=== PATIENT | male | born 1950 | race Caucasian/White ===

== ENCOUNTER 2017-10-13 10:01 | Outpatient (CLI) | payer MEDICARE | END 2017-10-13 10:02 | disposition home or self-care (01) | LOC: CTENTCT 10:01 | PROVIDERS: ATTEND Specialist | DX: J33.9 Nasal polyp, unspecified (principal) | CPT/HCPCS: 70486 ==

== ENCOUNTER 2018-01-18 10:05 | Day surgery (SDC) | payer BC, MEDICARE ==
[2018-01-17 11:22] VITALS: BMI 25.4
[2018-01-18] MEDS ORDERED: Oxymetazoline HCl 0.05% ( 15 ML ) ONE ×2 (11:55→13:26)
[2018-01-18 12:16] LABS: Hemoglobin 15.7 g/dL (14.0-18.0)
[2018-01-18 12:37] LABS: Anion Gap 11 mmol/L (10-20); BUN (Urea Nitrogen) 15 mg/dL (8.4-25.7); Calc. Creatinine Clearance 85 mL/min (70-130); Calcium 8.7 mg/dL (7.8-10.44); Carbon Dioxide 26 mmol/L (23-31); Chloride 106 mmol/L (98-107); Estimated GFR-MDRD 74; Glucose 83 mg/dL (80-115); Potassium 3.9 mmol/L (3.5-5.1); Sodium 139 mmol/L (136-145)
[2018-01-18] MEDS ORDERED: Fentanyl 100 MCG/2 ML VIAL ONE ×2 (12:39→13:21)
[2018-01-18] MEDS ORDERED: Famotidine/PF 20 mg/2ml Vial ONE (12:39)
[2018-01-18] MEDS ORDERED: Dexamethasone 20 MG/5 ML VIAL ONE (13:19)
[2018-01-18] MEDS ORDERED: Ondansetron HCl/PF 4 MG/2 ML Vial ONE (13:19)
[2018-01-18] MEDS ORDERED: ePHEDrine/0.9% NaCl/PF SYRINGE 50 mg/10 ml ONE (13:19)
[2018-01-18] MEDS ORDERED: Succinylcholine Chloride 20 MG/ML 10 ml SYRINGE FS ONE (13:19)
[2018-01-18] MEDS ORDERED: PROPOFOL 200 MG/20 ML VIAL ONE (13:19)
[2018-01-18] MEDS ORDERED: Glycopyrrolate 0.2 MG/ML 5 ML SYRINGE ONE (13:19)
[2018-01-18] MEDS ORDERED: Lidocaine 1% PF 5 ML VIAL ONE (13:19)
[2018-01-18] MEDS ORDERED: Lidocaine 4% Topical Sol 50 ML BOT ONE (13:24)
[2018-01-18] MEDS ORDERED: Lidocaine 1% w/Epinephrine 1:100K 30 ML VIAL ONE (13:26)
[2018-01-18] MEDS ORDERED: Bacitracin Zinc Ointment 30 gm TUBE ONE (13:26)
[2018-01-18] MEDS ORDERED: Triamcinolone 40 MG/ML VIAL ONE (14:14)
--- NOTE | 2018-01-18 16:26 | OP ---
PREOPERATIVE DIAGNOSES: Chronic sinusitis, recurrent sinusitis, pansinusitis, nasal polyposis, devia viv septum, hypertrophic inferior turbinates. POSTOPERATIVE DIAGNOSES: Chronic sinusitis, recurrent sinusitis, pansinusitis, nasal polyposis, meño ated septum, hypertrophic inferior turbinates. PROCEDURES PERFORMED: 1. Bilateral nasal endoscopy with maxillary antrostomy with removal of tissue. 2. Bilateral nasal endoscopy with total ethmoidectomy. 3. Bilateral nasal endoscopy with sphenoidotomy with removal of tissue. 4. Bilateral nasal endoscopy with frontal sinusotomy. 5. Septoplasty. 6. Bilateral nasal endoscopy with submucosal resection of inferior turbinates. 7. Stereotactic image guidance. FINDINGS: The patient had a large anterior septal spur which was occluded. Visualization of the ost iomeatal complex area and this was addressed endoscopically. There was extensive polyps in all sinus es. DESCRIPTION OF PROCEDURE: After consent was obtained, the patient was identified, brought to the ope rating room, and placed on the operating room table in the supine position. Consent was obtained, no tifying the patient of the possibility of additional infections, bleeding, brain injury, and eye/orbi jose injury. The patient was placed on the operating room table, and general endotracheal anesthesia and intravenous access was obtained. The patient was then positioned, prepped and draped for endosc opic sinus surgery. Nasal preparation included trimming nasal vestibular hairs and spraying in topic al Afrin. We then placed Afrin topical solution on nasal pledgets and strategically located them int ranasally. The perinasal mucosa was injected with 1% lidocaine with 1:100,000 epinephrine in the sub mucoperichondrial plane of the septum, lateral nasal wall, and anterior to the uncinate. The patient was then prepped and draped in a sterile fashion and positioned for endoscopic sinus surgery. Endoscopic Sinus Surgery: With the 0-degree endoscope, the patient underwent systematic nasal endosc opy. There were no suspicious internasal masses or lesions identified. We then focused our attentio n to the osteomeatal complex region under the middle turbinate. Maxillary Antrostomy: The uncinate was then identified and the extent of the uncinate was appreciate d by out-fracturing the uncinate with the ball-tip probe. We then used the sickle blade to disarticu late the uncinate from the lateral nasal wall. This was then removed with straight biting and upbiti ng punches with the remaining shrouds of mucosa and bony septum removed with the micro-debrider. The natural os of the maxillary sinus was then identified and enlarged with the maxillary punches and ba ck biting forceps. Total Ethmoidectomy: The anterior face of the ethmoid bulla was entered and with the micro-debrider, dissection continued posteriorly to the ground lamella. The limits of dissection included the inser tion of the middle turbinate, medial orbital wall, and base of skull. We similarly identified the fr ontal recess and removed shrouds of bone and debris in that region to obtain patency into the agger n asi region and frontal recess. We then entered the ground lamella and its anteroinferior aspect and proceeded posteriorly, opening the posterior ethmoid air-cell system. Again, the limits of dissectio n included the base of skull and medial orbital wall. Sphenoidotomy: The anterior face of the sphenoid was identified and entered in its extreme anteroinf erior aspect. A sphenoid punch was then used to enlarge the sphenoidotomy and no injury to the optic nerve or internal carotid artery occurred. Outfracture of the Inferior Turbinates: The inferior turbinates were visualized under endoscopic vis ualization and outfractured with the elevator. The inferolateral edge of the inferior turbinate was then cauterized along its length with the suction cautery without difficulty. Outfracture & Cautery of the Inferior Turbinates: The inferior turbinates were visualized with a 0-d egree endoscope and outfractured with a Jennifer elevator. The inferior medial aspect was cauterized wi th the electrocautery. Hemostasis was obtained. After adequate airway was established, we turned ou r attention to the contralateral side and used a similar procedure. Again, a Jennifer elevator was used to outfracture inferior turbinates under endoscopic visualization. With a suction cautery, the free inferior medial aspect was cauterized under direct visualization along the length of the inferior tu rbinate. Septoplasty: After local anesthesia was infiltrated into the submucoperichondrial plane, a standard Eudora incision was made with a #15 blade down to the level of the septal cartilage. The caudal naman vator was used to elevate the mucoperichondrium from the underlying cartilage. We then proceeded bey ond the bony cartilaginous junction and elevated the bony periosteum as well. Great attention was pa id to the spur to prevent rent formation in the septal flap. A transcartilaginous incision was then m herman, while preserving an adequate dorsal and caudal cartilaginous strut for tip support. The deforme d cartilage was removed and disarticulated from the bony cartilaginous junction and maxillary crest. This was placed in saline and would later be crushed and returned to the mucoperichondrial envelope. We then elevated the contralateral periosteum from the bony cartilaginous region and removed the de formed portions of the bone and bony spurs. The cartilage was then crushed and placed back into the mucoperichondrial envelope and the mucosa was re-approximated with a quilting stitch composed of rapi dly absorbent gut suture. The Eudora incision was also closed with interrupted gut suture. At the completion of the case, Blakely splints were placed and suture secured to the caudal septum. At the completion of the case, Rice keel splints were placed in the ethmoid cavities after the ethmoi dectomy. There were no complications. The patient tolerated the procedure well and was discharged t o the recovery room in stable condition prior to return to the preoperative Day Stay with [facility]. Prescriptions for pain medication and antibiotics were provided. The patient received intramuscular Depo-Medrol during the case.
--- NOTE | 2018-01-21 20:55 | EKG ---
Test Reason : PREOP Blood Pressure : / mmHG Vent. Rate : 056 BPM Atrial Rate : 056 BPM P-R Int : 162 ms QRS Dur : 096 ms QT Int : 412 ms P-R-T Axes : 060 -20 012 degrees QTc Int : 397 ms Sinus bradycardia with sinus arrhythmia Minimal voltage criteria for LVH, may be normal variant Borderline ECG No previous ECGs available Confirmed by Kareem LUCAS ([id number]) on 01/21/2018 8:54:46 PM Referred By: WANDA Confirmed By:Kareem LUCAS
== END 2018-01-18 16:25 | disposition home or self-care (01) ==
LOC: SDC 10:05
PROVIDERS: ATTEND Specialist
PROC: 09TV8ZZ Resection of Left Ethmoid Sinus, Via Natural or Artificial Opening Endoscopic (ICD-10-PCS; principal; 2018-01-18)
PROC: 09SL8ZZ Reposition Nasal Turbinate, Via Natural or Artificial Opening Endoscopic (ICD-10-PCS; principal; 2018-01-18)
PROC: 09SM0ZZ Reposition Nasal Septum, Open Approach (ICD-10-PCS; principal; 2018-01-18)
PROC: 8E09XBZ Computer Assisted Procedure of Head and Neck Region (ICD-10-PCS; principal; 2018-01-18)
PROC: 099X8ZZ Drainage of Left Sphenoid Sinus, Via Natural or Artificial Opening Endoscopic (ICD-10-PCS; principal; 2018-01-18)
PROC: 09BQ8ZZ Excision of Right Maxillary Sinus, Via Natural or Artificial Opening Endoscopic (ICD-10-PCS; principal; 2018-01-18)
PROC: 09BR8ZZ Excision of Left Maxillary Sinus, Via Natural or Artificial Opening Endoscopic (ICD-10-PCS; principal; 2018-01-18)
PROC: 09TU8ZZ Resection of Right Ethmoid Sinus, Via Natural or Artificial Opening Endoscopic (ICD-10-PCS; principal; 2018-01-18)
PROC: 099W8ZZ Drainage of Right Sphenoid Sinus, Via Natural or Artificial Opening Endoscopic (ICD-10-PCS; principal; 2018-01-18)
DX: J32.4 Chronic pansinusitis (principal); J33.9 Nasal polyp, unspecified; J34.2 Deviated nasal septum; J34.3 Hypertrophy of nasal turbinates; G47.30 Sleep apnea, unspecified; Z79.899 Other long term (current) drug therapy; Z88.5 Allergy status to narcotic agent
CPT/HCPCS: 36415; 80048; 85014; 85018; 93005; 93010; J0131; J1100; J2001; J2405; J2704; J3010; J3301; S0028

== ENCOUNTER 2019-03-08 16:21 | Inpatient (IN) | payer BC, MEDICARE ==
[~2019-03-08 16:21] MED LIST: Iopamidol-370 76% 500 ML 1 ML ONE
[2019-03-08 17:07] LABS: ALT (SGPT) 39 U/L (8-55); AST (SGOT) 61 U/L (5-34); Alkaline Phosphatase 92 U/L (40-110); Anion Gap 9 mmol/L (10-20); BUN (Urea Nitrogen) 23 mg/dL (8.4-25.7); Bilirubin, Total 1.2 mg/dL (0.2-1.2); CK (CPK) 1272 U/L (30-200); Calc. Creatinine Clearance 0 mL/min (70-130); Calcium 8.6 mg/dL (7.8-10.44); Carbon Dioxide 28 mmol/L (23-31); Chloride 108 mmol/L (98-107); Estimated GFR-MDRD 52; Globulin 2.9 g/dL (2.4-3.5); Glucose 92 mg/dL (80-115); Potassium 4.1 mmol/L (3.5-5.1); Protein, Total 6.9 g/dL (5.8-8.1); Sodium 141 mmol/L (136-145)
--- NOTE | 2019-03-08 17:13 | RAD ---
FRONTAL VIEW CHEST: 03/08/19 COMPARISON: No prior comparison. INDICATION: Short of breath. FINDINGS: The lungs are hyperinflated. There is mild interstitial prominence bilaterally. The cardiac silhouett e is mildly prominent, although accentuated by portable technique. IMPRESSION: Hyperinflated lungs with interstitial prominence. Correlate for evidence of COPD. POS: C
[2019-03-08 17:22] LABS: Bacteria/HPF None Seen HPF (None Seen); Bilirubin Negative (Negative); Blood, Urine Negative (Negative); Clarity Clear (Clear); Glucose, Urine (Dipstick) Normal (Negative); Leukocyte 25 Leu/uL (Negative); Nitrite Negative (Negative); Protein, Urine (Dipstick) Negative (Neg-Trace); RBC/HPF 0-3 HPF (0-3); Squamous Epithelial None Seen HPF (0-3); WBC/HPF 0-3 HPF (0-3)
[2019-03-08 17:22] LABS: #Basophils 0.1 thou/uL (0.0-0.2); #Eosinphils 0.6 thou/uL (0.0-0.7); #Lymphocytes 1.7 thou/uL (1.20-3.40); #Neutrophils 4.6 thou/uL (1.40-6.50); %Basophils 1.4 % (0.0-1.0); %Eosinophils 7.2 % (0.0-10.0); %Lymphocytes 21.6 % (21.0-51.0); %Monocytes 12.1 % (0.0-10.0); %Neutrophils 57.7 % (42.0-75.0); Hemoglobin 15.3 g/dL (14.0-18.0); Mean Corpuscular HGB CONC 32.3 g/dL (32.0-36.0); Mean Corpuscular Hemoglobin 30.8 pg (27.0-31.0); Mean Corpuscular Volume 95.4 fL (78.0-98.0); Platelet Count 177 thou/uL (130-400); RBC Distribution Width 12.5 % (11.5-14.5); Red Blood Cell (RBC) Count 4.97 mill/uL (4.70-6.10)
[2019-03-08 17:32] LABS: CKMB 7.8 ng/mL (0-6.6)
--- NOTE | 2019-03-08 18:33 | CT ---
CTA Angio Chest W WO Con History: Chest pain Comparison: None. Findings: CT angiogram chest performed after the intravenous ministration of contrast. 3-D rendering provided. No proximal segmental pulmonary arterial filling defect. The subsegmental arteries are not well opaci fied. No pericardial effusion. Aortic contour is nonaneurysmal. Punctate left superior renal calculus. Aortic contour is nonaneurysmal. Lungs are clear. No pneumothorax. No effusion. No acute osseous abnormality. No displaced rib fracture. Impression: 1. No proximal segmental pulmonary artery filling defect. 2. No acute abnormality within the chest.
[2019-03-08] MEDS ORDERED: Aspirin Chewable 81 MG TAB ONE (19:06)
[2019-03-08 20:47] LABS: Troponin I 0.047 ng/mL (< 0.028)
--- NOTE | 2019-03-08 21:09 | PDOC.FPRHP ---
- History of Present Illness Chief Complaint: Rule out PE History of Present Illness: 68 yo male presents for evaluation of increased urination and rule out of PE. Patient reports that one week ago he was hiking the [place] [employer]. He reports this was his first major hike in over 2 years. He noted he had difficulty breathing on the way up, but contributed that to the altitude. He also notes that he had significant leg cramps on the way down. He then reports one episode of chest pain in the middle of his chest lasting approximately 1 minute three days ago. He denies n/v/d, unilateral weakness, SOB, or recent illness. Today, he noted that in his commute to work he had to stop and urinate four times and that was considerably more than his normal. Since being in the ED his urinary frequency has subsided. No other complaints. ED Course: ASA 325 mg 2L LR bolus - Allergies/Adverse Reactions Allergies Allergy/AdvReac Type Severity Reaction Status Date / Time codeine Allergy Intermediate RASH/ITCHING/ Verified 03/09/19 01:46 HEADACHE - Home Medications Medication Instructions Recorded Confirmed Type Fexofenadine/Pseudoephedrine 1 each PO DAILY PRN 01/17/18 03/09/19 History [Antoneita-D 24 Hour Tablet] Fluticasone Propionate [Flonase 1 spray EA NARE PRN PRN 01/17/18 03/09/19 History Nasal Berthold] Losartan Potassium [Cozaar] 100 mg PO DAILY 01/17/18 03/09/19 History Fluticasone/Vilanterol [Breo 1 puff INH DAILY 03/09/19 03/09/19 History Ellipta] - History PMHx: HTN, COPD, Depression PSHx: Hernia repair x2 FHx: Noncontributory Social: Uses marijuana. Drinks socially 3-5 times per month. Denies tobacco use. - Review of Systems ROS unobtainable: due to endotracheal tube General: denies: fever/chills ENT: denies: nasal congestion, rhinorrhea Respiratory: denies: cough, congestion, shortness of breath Cardiovascular: denies: chest pain, palpitation Gastrointestinal: denies: nausea, vomiting, diarrhea, constipation Genitourinary: reports: polyuria. denies: incontinence, dysuria Skin: denies: rashes, lesions Musculoskeletal: denies: pain, tenderness, stiffness, swelling, arthritis/ arthralgias Neurological: denies: numbness, syncope, seizure Psychological: denies: anxiety, depression - Vital signs BP: 189/98 HR: 74 RR: 14 Tmax: 98.1 Pox: 98% on RoomAir Wt: 85.28 - Physical Exam Constitutional: NAD, awake, alert and oriented HEENT: PERRLA, grossly normal vision, grossly normal hearing, normal nasal mucosa, MMM Neck: supple, trachea midline Heart: RRR, normal S1/S2, no murmurs/rubs/gallops Lungs: CTAB, no respiratory distress, good air movement Abdomen: soft, non-tender, bowel sounds present, no masses/distention Musculoskeletal: normal structure, normal tone, ROM grossly normal Neurological: no focal deficit, CN II-XII intact, normal sensation Skin: no rash/lesions, good turgor, capillary refill <2 seconds Heme/Lymphatic: no unusual bruising or bleeding, no purpura Psychiatric: normal mood and affect, good judgment and insight, intact recent and remote memory FMR H&P: Results - Labs Result Diagrams: 03/08/19 16:36 03/09/19 05:11 Lab results: WBC 8.0 thou/uL (4.8-10.8) 03/08/19 16:36 Hgb 15.3 g/dL (14.0-18.0) 03/08/19 16:36 Hct 47.4 % (42.0-52.0) 03/08/19 16:36 MCV 95.4 fL (78.0-98.0) 03/08/19 16:36 Plt Count 177 thou/uL (130-400) 03/08/19 16:36 Neutrophils % 57.7 % (42.0-75.0) 03/08/19 16:36 Sodium 141 mmol/L (136-145) 03/08/19 16:36 Potassium 4.1 mmol/L (3.5-5.1) 03/08/19 16:36 Chloride 108 mmol/L (98-107) H 03/08/19 16:36 Carbon Dioxide 28 mmol/L (23-31) 03/08/19 16:36 BUN 23 mg/dL (8.4-25.7) 03/08/19 16:36 Creatinine 1.37 mg/dL (0.7-1.3) H 03/08/19 16:36 Glucose 92 mg/dL (80-115) 03/08/19 16:36 Calcium 8.6 mg/dL (7.8-10.44) 03/08/19 16:36 Total Bilirubin 1.2 mg/dL (0.2-1.2) 03/08/19 16:36 AST 61 U/L (5-34) H 03/08/19 16:36 ALT 39 U/L (8-55) 03/08/19 16:36 Alkaline Phosphatase 92 U/L (40-110) 03/08/19 16:36 Creatine Kinase 1272 U/L (30-200) H 03/08/19 16:36 CK-MB (CK-2) 7.8 ng/mL (0-6.6) H* 03/08/19 16:36 B-Natriuretic Peptide 404.8 pg/mL (0-100) H 03/08/19 19:03 Serum Total Protein 6.9 g/dL (5.8-8.1) 03/08/19 16:36 Albumin 4.0 g/dL (3.4-4.8) 03/08/19 16:36 Urine Ketones Negative mg/dL (Negative) 03/08/19 17:09 Urine Blood Negative (Negative) 03/08/19 17:09 Urine Nitrite Negative (Negative) 03/08/19 17:09 Ur Leukocyte Esterase 25 Nicholas/uL (Negative) 03/08/19 17:09 Urine RBC 0-3 HPF (0-3) 03/08/19 17:09 Urine WBC 0-3 HPF (0-3) 03/08/19 17:09 Ur Squamous Epith Cells None Seen HPF (0-3) 03/08/19 17:09 Urine Bacteria None Seen HPF (None Seen) 03/08/19 17:09 - EKG Interpretation EK lead EKG shows normal sinus rhythm, Rate (beats per minute): 75, Conduction normal, ST segments normal, T waves normal, [place] normal, Other findings include: , voltage criteria for left ventricular hypertrophy. FMR H&P: A/P - Problem List (1) Rhabdomyolysis Current Visit: Yes Status: Acute Code(s): M62.82 - RHABDOMYOLYSIS (2) Elevated troponin Current Visit: Yes Status: Acute Code(s): R79.89 - OTHER SPECIFIED ABNORMAL FINDINGS OF BLOOD CHEMISTRY (3) Hypertension Current Visit: Yes Status: Acute Code(s): I10 - ESSENTIAL (PRIMARY) HYPERTENSION (4) COPD (chronic obstructive pulmonary disease) Current Visit: Yes Status: Acute (5) CORTNEY (acute kidney injury) Current Visit: Yes Status: Acute Code(s): N17.9 - ACUTE KIDNEY FAILURE, UNSPECIFIED - Plan 1. Rhabdomyolysis - s/p 2L bolus - IVF - Recheck CK in AM 2. Elevated Troponin - No reported chest pain - No EKG changes - Trend troponins - Treadmill stress in AM 3. HTN - Restart home medications - PRN medications for SBP >180 - Likely will need outpatient follow up 4. COPD - No acute exacerbation symptoms - Continue home meds 5. CORTNEY - Unknown baseline - Previous value in EMR approximately 1.0 - IVF and recheck in AM CODE STATUS: FULL CODE Disposition: Stable, admit to Telemetry Observation for testing PCP: ELADIO Addendum - Attending - Attending Attestation Date/Time: 03/09/19 0578 I personally evaluated the patient and discussed the management with Dr. Martines. I agree with the History, Examination, Assessment and Plan documented above with any addition or exceptions noted below. Patient here for muscle cramping and chest discomfort. He recently completed a large hike and has had muscle pain since that time. No chest pain or dyspnea during that time. He did have episode of chest discomfort yesterday that prompted ER visit. He was noted to have elevated CK. Trops indeterminate. He has been fluid hydrated and CK now in more normal range. Stress test today and dispo per that result.
[2019-03-09] MEDS ORDERED: Nitroglycerin 0.4 MG TAB (25 Tab Bottle) PO PRN (00:05)
[2019-03-09] MEDS ORDERED: hydrALAZINE 20 MG/ML VIAL SLOW IVP PRN (00:05)
[2019-03-09] MEDS ORDERED: Acetaminophen 325 MG TAB PO PRN (00:05)
[2019-03-09 00:46] LABS: Troponin I 0.016 ng/mL (< 0.028)
[2019-03-09] MEDS: Lactated Ringer's 1,000 ML IV SCH ×2 (01:01→10:01)
[2019-03-09 01:16] LABS: CKMB 5.4 ng/mL (0-6.6)
[2019-03-09 01:42] VITALS: BMI 26.5
[2019-03-09 02:33] LABS: Troponin I Less than 0.010 ng/mL (< 0.028)
[2019-03-09] MEDS ORDERED: Loratadine/Pseudoephedrine 10/240 mg Tablet PO PRN (05:48)
[2019-03-09 05:49] LABS: Anion Gap 10 mmol/L (10-20); BUN (Urea Nitrogen) 17 mg/dL (8.4-25.7); CK (CPK) 613 U/L (30-200); Calc. Creatinine Clearance 95 mL/min (70-130); Calcium 8.4 mg/dL (7.8-10.44); Carbon Dioxide 26 mmol/L (23-31); Chloride 108 mmol/L (98-107); Cholesterol 124 mg/dl (< 200 Desired); Estimated GFR-MDRD 84; Glucose 88 mg/dL (80-115); HDL Cholesterol 41 mg/dL (>60 Neg Risk); LDL Cholesterol, Calculated 72 mg/dL; Potassium 3.7 mmol/L (3.5-5.1); Sodium 140 mmol/L (136-145); Triglycerides 56 mg/dL (Less than 150)
--- NOTE | 2019-03-09 05:57 | PDOC.FM ---
- Subjective Subjective: Patient doing well this morning. Denies chest pain or muscle cramping. Discussed plans for stress test today, patient agreeable with plan of care. - Objective Vital Signs & Weight: Vital Signs (12 hours) Temp Pulse Resp BP Pulse Ox 03/09/19 04:05 97.4 F L 60 18 182/93 H 98 03/08/19 23:18 97.6 F 58 L 16 159/85 H 97 Weight Weight 86.319 kg Result Diagrams: 03/08/19 16:36 03/09/19 05:11 EKG Reviewed by me: Yes (sinus, sinus wendy at times 40s-50s) Phys Exam - Physical Examination Constitutional: NAD HEENT: moist MMs, sclera anicteric Neck: supple, full ROM Respiratory: no wheezing, clear to auscultation bilateral Cardiovascular: RRR, no significant murmur Gastrointestinal: soft, non-tender Musculoskeletal: no edema, pulses present Neurological: normal sensation, moves all 4 limbs Psychiatric: normal affect, A&O x 3 Skin: no rash, normal turgor Dx/Plan (1) CORTNEY (acute kidney injury) Code(s): N17.9 - ACUTE KIDNEY FAILURE, UNSPECIFIED Status: Acute (2) COPD (chronic obstructive pulmonary disease) Status: Acute (3) Elevated troponin Code(s): R79.89 - OTHER SPECIFIED ABNORMAL FINDINGS OF BLOOD CHEMISTRY Status : Acute (4) Hypertension Code(s): I10 - ESSENTIAL (PRIMARY) HYPERTENSION Status: Acute (5) Rhabdomyolysis Code(s): M62.82 - RHABDOMYOLYSIS Status: Acute - Plan Plan: Patient is a 68M admitted to telemetry obs for IVF for rhabdo and CORTNEY, and for cardiac workup. #Rhabdomyolysis - s/p 2L bolus - IVF - CK 1272>613 #Elevated Troponin - No reported chest pain - No EKG changes - Troponins trended, 0.035>0.047>0.016 - Treadmill stress today -triglycerides 56, cholesterol 124, LDL 72, HDL 41 #HTN - Restarted home medications - PRN medications for SBP >180 - Encouraged patient to follow up with pcp upon discharge for BP management #COPD - No acute exacerbation symptoms - Continue home meds #CORTNEY, resolved - Unknown baseline - Previous value in EMR approximately 1.0 - IVF - Creatinine 1.37>0.9 with IVF CODE STATUS: FULL CODE Disposition: Stable, admitted to Telemetry Observation for stress test today, possible d/c later today pending stress test results PCP: ELADIO Addendum - Attending - Attending Attestation Date/Time: 03/09/19 3558 I personally evaluated the patient and discussed the management with Dr. Hodge. I agree with the History, Examination, Assessment and Plan documented above with any addition or exceptions noted below. See H/P with my addendum for today.
[2019-03-09] MEDS ORDERED: Mometasone/Formoterol 120 PUFF INHALER INH SCH (06:30)
[2019-03-09] MEDS ORDERED: Fluticasone Propionate Nasal Spray 16 gm Bottle NASAL PRN (07:26)
[2019-03-09 08:30] VITALS: TEMP 97.9
[2019-03-09] MEDS ORDERED: Losartan 25 MG TAB PO SCH ×2 (09:00→10:15)
[2019-03-09 12:02] VITALS: BP 138/76
[2019-03-10] MEDS ORDERED: Losartan 25 MG TAB PO SCH (09:00)
--- NOTE | 2019-03-11 14:13 | DIS ---
DATE OF ADMISSION: 03/09/2019 DATE OF DISCHARGE: 03/09/2019 ADMITTING ATTENDING: Dr. Artis Valiente. ADMITTING RESIDENT: Dr. Ruiz Martines DISCHARGE ATTENDING: Dr. Artis Valiente. DISCHARGE RESIDENT: Dr. Yovana Hodge. CONSULTATIONS: None. PROCEDURES: Treadmill stress test. IMAGING: Chest x-ray: Hyperinflated lungs with interstitial prominence. Correlate for evidence for COPD. Thorax CTA, no proximal segmental pulmonary artery filling defect. No acute abnormality within the chest. PRIMARY DIAGNOSES: Rhabdomyolysis, elevated troponin, acute kidney injury. SECONDARY DIAGNOSES: Hypertension, chronic obstructive pulmonary disease. DISCHARGE MEDICATIONS: 1. Fluticasone nasal spray one spray each nare p.r.n. 2. I puff Breo Ellipta inhaled daily. 3. 100 mg losartan p.o. daily. Discontinued medications: 1. Antonieta D. 2. Hydralazine p.r.n. 3. Nitrostat. 4. Tylenol p.r.n. 5. Lactated Ringer's. HISTORY OF PRESENT ILLNESS/HOSPITAL COURSE: The patient is a 68-year-old male who presented to the emergency department with a chief complaint: to rule out PE, sent over from his primary care physician at the [place]. The patient reports that one week ago he was hiking in the [facility] and had difficulty breathing on the way up. He also reported significant leg cramps on the way down and one episode of chest pain lasting approximately 1 minute 3 days ago. He also presented with urinary frequency x1 day. On evaluation, the patient was found to have rhabdomyolysis with a CK of 1272 and an acute kidney injury with a creatinine at 1.37. Both of these improved with IV fluid rehydration with a creatine kinase of 613 and a creatinine of 0.9 on discharge after fluids. The patient was worked up for his chest pain episode. His troponin on admission was 0.035 that trended up to 0.047 before down trending to 0.016 and then less than 0.01. His BNP was found to be 404. His cardiac risk factors were worked up and it was determined that he had a triglyceride of 56, total cholesterol of 124, LDL cholesterol 72, HDL cholesterol 41. The patient had a treadmill stress test that demonstrated no significant changes in the EKG upon stress and it was interpreted to be a negative treadmill stress test. On the day of discharge, the patient had reported that he had not had any chest pain overnight and his muscle cramping had improved. He still did report some urinary frequency, however, he had also been receiving IV fluids for his rhabdomyolysis and acute kidney injury. His fasting glucose on the morning of discharge was 88, making diabetes less likely. The patient was hypertensive throughout his hospital stay with blood pressures largely ranging in the 160s to 180s over 80s to 90s. The patient did have p.r.n. hydralazine to help with his high blood pressures, and his home losartan was continued. It was recommended that the patient discontinue taking any allergy medications that contain a decongestant as Antonieta D was found to be part of his medication reconciliation. It was also recommended that the patient followup with his primary care provider within the next few days to have a discussion about better blood pressure control. Patient was agreeable with the plan of care. DISPOSITION: Stable. DISCHARGE INSTRUCTIONS: 1. Location: Home. 2. Diet: Heart healthy. 3. Activity: As tolerated. 4. Follow up with PCP within 3 days for blood pressure management. Job ID: [id number] HEAVEN
== END 2019-03-09 13:58 | disposition home or self-care (01) | DRG 683 ==
LOC: ERS 16:21 → 2NO 03-09 00:02
PROVIDERS: ADMIT Student in an Organized Health Care Education/Training Program; ATTEND Student in an Organized Health Care Education/Training Program
DX: N17.9 Acute kidney failure, unspecified (principal); M62.82 Rhabdomyolysis; R79.89 Other specified abnormal findings of blood chemistry; I10 Essential (primary) hypertension; F32.9 Major depressive disorder, single episode, unspecified; J44.9 Chronic obstructive pulmonary disease, unspecified; R40.2362 Coma scale, best motor response, obeys commands, at arrival to emergency department; R40.2142 Coma scale, eyes open, spontaneous, at arrival to emergency department; R40.2252 Coma scale, best verbal response, oriented, at arrival to emergency department
CPT/HCPCS: 36415; 71045; 71275; 80048; 80053; 80061; 81003; 81015; 82550; 82553; 83880; 84484; 85025; 85379; 87086; 93005; 93017; 94760; J0360; Q9967

== ENCOUNTER 2019-04-22 08:31 | Outpatient (CLI) | payer BC, MEDICARE ==
--- NOTE | 2019-04-22 08:49 | RAD ---
XR Chest Pa Lat @ POB History: Dyspnea Comparison: CTA chest March 08, 2019 Findings: Prominent right sided nipple shadow. Lungs without confluent airspace consolidation, pneumo thorax, or effusion. Mild lung hyperinflation. Cardiac silhouette and mediastinal contours are within normal limits. Biapical pleural scarring. Impression: No acute intrathoracic abnormality.
== END 2019-04-22 08:32 | disposition home or self-care (01) ==
LOC: RAD 08:31
PROVIDERS: ATTEND Internal Medicine Critical Care Medicine
DX: R06.00 Dyspnea, unspecified (principal)
CPT/HCPCS: 71046

== ENCOUNTER 2019-08-24 12:21 | Observation (INO) | payer BC, MEDICARE ==
[2019-08-24] MEDS ORDERED: Proparacaine 0.5% Opth 15 ML BOT ONE (12:46)
[2019-08-24] MEDS ORDERED: Metoclopramide HCl 10 MG/2 ML VIAL ONE (13:04)
[2019-08-24] MEDS ORDERED: diphenhydrAMINE 50 MG/ML VIAL ONE (13:05)
--- NOTE | 2019-08-24 13:05 | CT ---
Exam: CT brain PROVIDED CLINICAL HISTORY: Headache COMPARISON: None FINDINGS: The ventricular system is normal in size and morphology. No evidence for intracranial hemorrhage or mass effect. Partially visualized mucosal thickening and/or fluid involving right maxillary sinus. Partial opacification of ethmoid air cells and frontal sinus. Extracranial soft tissues and osseous s tructures appear otherwise unremarkable. IMPRESSION: No evidence for intracranial hemorrhage or mass effect. Paranasal sinus mucosal disease as described.
[2019-08-24 13:13] LABS: #Basophils 0.1 thou/uL (0.0-0.2); #Eosinphils 0.3 thou/uL (0.0-0.7); #Lymphocytes 1.3 thou/uL (1.20-3.40); #Monocytes 1.5 thou/uL (0.11-0.59); #Neutrophils 7.2 thou/uL (1.40-6.50); %Basophils 0.9 % (0.0-1.0); %Lymphocytes 12.6 % (21.0-51.0); %Monocytes 14.4 % (0.0-10.0); %Neutrophils 69.1 % (42.0-75.0); Mean Corpuscular Hemoglobin 31.1 pg (27.0-31.0); Mean Corpuscular Volume 94.3 fL (78.0-98.0); Mean Platelet Volume 6.3 fL (7.4-10.4); Platelet Count 365 thou/uL (130-400); RBC Distribution Width 11.7 % (11.5-14.5); Red Blood Cell (RBC) Count 4.16 mill/uL (4.70-6.10); White Blood Cell (WBC) Count 10.4 thou/uL (4.8-10.8)
[2019-08-24 13:33] LABS: ALT (SGPT) 62 U/L (8-55); AST (SGOT) 46 U/L (5-34); Albumin 3.3 g/dL (3.4-4.8); Alkaline Phosphatase 180 U/L (40-110); Anion Gap 13 mmol/L (10-20); BUN (Urea Nitrogen) 15 mg/dL (8.4-25.7); Bilirubin, Total 1.1 mg/dL (0.2-1.2); Calc. Creatinine Clearance 0 mL/min (70-130); Carbon Dioxide 23 mmol/L (23-31); Chloride 108 mmol/L (98-107); Estimated GFR-MDRD 87; Globulin 2.9 g/dL (2.4-3.5); Glucose 106 mg/dL (80-115); Potassium 3.7 mmol/L (3.5-5.1); Protein, Total 6.2 g/dL (5.8-8.1); Sodium 140 mmol/L (136-145)
[2019-08-24] MEDS ORDERED: Aspirin 325 MG TAB ONE (15:40)
[2019-08-24 17:22] VITALS: BMI 25.3
[2019-08-24] MEDS ORDERED: Ondansetron PF 4 MG/2 ML Vial IVP PRN ×2 (17:53→19:30)
[2019-08-24] MEDS ORDERED: Ondansetron ODT 4 MG TAB SL PRN (17:53)
[2019-08-24] MEDS ORDERED: Sodium Chloride 0.65% Nasal 44 ML BOT EA NARE PRN (19:30)
[2019-08-24] MEDS ORDERED: Benzonatate 100 MG CAP PO PRN (19:30)
[2019-08-24] MEDS ORDERED: Fluticasone Propionate Nasal Spray 16 gm Bottle NASAL PRN (19:30)
[2019-08-24] MEDS ORDERED: EPHEDRINE SULFATE PO PRN (19:30)
[2019-08-24] MEDS ORDERED: Ondansetron ODT 4 MG TAB PO PRN (19:30)
[2019-08-24] MEDS ORDERED: Cepastat Lozenges 1 LOZ PO PRN (19:30)
[2019-08-24] MEDS ORDERED: GUAIFENESIN PO PRN (19:30)
[2019-08-24] MEDS ORDERED: hydrALAZINE 20 MG/ML VIAL SLOW IVP PRN (19:30)
--- NOTE | 2019-08-24 20:46 | HP ---
PRIMARY CARE PROVIDER: Jacinda Dhaliwal MD CHIEF COMPLAINT: Headache and visual changes. HISTORY OF PRESENT ILLNESS: This is a 69-year-old male, who presents to [facility] complaining of headache with associated visual disturbance of the left eye. The patient has noted intermittent visual loss to the left eye over the last 2 to 3 weeks, lasting minutes up to an hour, spontaneously resolving. The patient denied any direct trauma injury, but admits to associated photophobia and crooked lines moving through his visual field. The patient admits to some vision of the left eye peripherally, but mainly blacked out when the vision loss occurs. The patient states he has had increasing headaches with the vision changes and has a history of migraine headaches, but mainly ophthalmic migraines. The patient took [id number] ibuprofen and Tylenol without specific relief. The patient denies any recent travel history, but has noted fever intermittently over the last 3 to 5 days. The patient states he became concerned and was evaluated by his primary care provider and placed on a course of amoxicillin as well as intranasal steroids for sinusitis. The patient developed a rash on his upper extremities and was transitioned from amoxicillin to Levaquin, which he is currently taking for another 3 to 5 days. The patient states he underwent sinus surgery approximately 2 years prior to this evaluation and had not noticed any difficulty since the procedure until the last 2 weeks. The patient states he also was ruled out for COVID x2 after presenting to the clinic in the last 5 days prior to this evaluation. In the emergency room, the patient underwent general evaluation including CT imaging of the brain showing evidence for pansinusitis, but no acute intracranial process or CVA. ER treatment included aspirin 324 mg x1 in addition to Reglan, Benadryl, and intravenous normal saline x1 L. PAST MEDICAL HISTORY: 1. Rhabdomyolysis after extreme exertion in 2019. 2. Reactive airway disease. 3. Hypertension. 4. Benign prostatic hyperplasia. 5. Depression. 6. Edible marijuana use. 7. Acute sinusitis, treated with oral antibiotics. PAST SURGICAL HISTORY: 1. Status post hernia repair x2. 2. Status post rhinoplasty with sinus repair. CURRENT MEDICATIONS: 1. Amlodipine 2.5 mg p.o. b.i.d. 2. Ephedrine/guaifenesin 25/400 mg one tablet p.o. daily. 3. Flonase 2 sprays in each naris daily. 4. Breo Ellipta one puff inhaled daily. 5. Levaquin 500 mg p.o. daily. 6. Flomax 0.4 mg p.o. daily. ALLERGIES: TO CODEINE AND AMOXICILLIN. FAMILY HISTORY: No inheritable diseases per patient report. SOCIAL HISTORY: . Resides in the [place], [place] area. Works at [employer]. Uses edible marijuana 3 to 5 times per month. No tobacco use. No alcohol use. Functional of all activities of daily living. REVIEW OF SYSTEMS: CONSTITUTIONAL: Negative for weight loss or gain, ability to conduct usual activities. SKIN: Negative for rash, itching. EYES: Negative for double vision, pain. ENT/MOUTH: Negative for nose bleeding, neck stiffness, pain, tenderness. CARDIOVASCULAR: Negative for palpitations, dyspnea on exertion, orthopnea. RESPIRATORY: Negative for shortness of breath, wheezing, cough, hemoptysis, fever or night sweats. GASTROINTESTINAL: Negative for poor appetite, abdominal pain, heartburn, nausea, vomiting, constipation, or diarrhea. GENITOURINARY: Negative for urgency, frequency, dysuria, nocturia. MUSCULOSKELETAL: Negative for pain, swelling. NEUROLOGIC/PSYCHIATRIC: Negative for anxiety, depression. ALLERGY/IMMUNOLOGIC: Negative for skin rash, bleeding tendency. Otherwise negative except as stated per HPI. PHYSICAL EXAMINATION: VITAL SIGNS: On admission, blood pressure 151/78, pulse 81, respiratory rate 20, O2 saturation 97% on room air. GENERAL APPEARANCE: This is a 69-year-old male, alert and oriented x3, pleasant, responsive, talkative, in no acute distress. HEENT: Pupils are equal, round, reactive to light and accommodation. Extraocular muscles are intact. No scleral icterus. No conjunctival injection. Nares patent. OP is clear. Teeth in fair repair. NECK: Supple. No cervical adenopathy. No thyromegaly. No carotid bruits. No JVD appreciated. Cervical spine with full active and passive range of motion. No meningeal signs noted. CHEST: Lungs are clear to auscultation bilaterally. CARDIOVASCULAR EXAM: S1, S2 without noted murmur, rub, or gallop. ABDOMEN: Rounded, soft, nontender, and nondistended. Bowel sounds are positive in all 4 quadrants. There is no hepatosplenomegaly. No abdominal bruits. No rebound or guarding appreciated. EXTREMITIES: Warm and dry with fair turgor. No clubbing, cyanosis, or asymmetric edema appreciated. Pulses palpable distally at the dorsalis pedis, posterior tibial, and popliteal arteries bilaterally. Capillary refill less than 2 seconds. NEUROLOGIC: Cranial nerves 2 through 12 are grossly intact. No focal or lateralizing signs appreciated. Intraocular pressure measured in the emergency room, 16 mmHg bilaterally. PERTINENT LABORATORY AND X-RAY FINDINGS: Sodium 140, potassium 3.7, chloride 108, CO2 of 23, BUN 15, creatinine 0.87, estimated GFR of 87, glucose 106, calcium 8.0, AST 46, ALT of 62, alkaline phosphatase 180. Troponin I negative x1. Albumin 3.3. CBC showed a white blood cell count of 10.4, hemoglobin 13, hematocrit 39, and platelet count 365 with 69% neutrophils. CT of the brain without contrast dated 08/24/2019, showed no acute intracranial process. Paranasal sinus mucosal disease noted. Portable chest x-ray dated 08/15/2019, showed no acute cardiopulmonary process. EKG dated 08/24/2019, by my interpretation shows sinus mechanism with heart rates in the 80s. Normal R-wave progression noted in the precordial leads. Normal axis. No acute ST-T wave changes appreciated. ASSESSMENT AND PLAN: 1. Transient ischemic attack with visual changes. The patient will be observed on the stroke unit. We will proceed with general stroke rule out including MRI of the brain with contrast. Check carotid Doppler study and 2D transthoracic echocardiogram. Consider Neurology consultation. Aspirin 81 mg daily. Lipitor 40 mg p.o. at bedtime. 2. Acute sinusitis. Continue Levaquin 500 mg daily. Continue Flonase 1 to 2 sprays in each naris daily. 3. Hypertension. Confirm home blood pressure regimen and resume when available. P.r.n. hydralazine and labetalol. 4. Marijuana use. Continue supportive management. Marijuana cessation resources prior to discharge. 5. Prophylaxis. SCDs while in bed. Pepcid 20 mg p.o. b.i.d. 6. Code status is full. Surrogate medical decision maker is the patient's spouse. Job ID: [id number]
[2019-08-24] MEDS: Amlodipine 5 MG TAB PO SCH (20:52)
[2019-08-24] MEDS: Famotidine 20 MG TAB PO SCH (20:52)
[2019-08-24] MEDS ORDERED: Atorvastatin Calcium 40 MG TAB PO SCH (21:00)
[2019-08-24] MEDS: Acetaminophen 500 MG TAB PO PRN (23:51)
[2019-08-25 05:15] LABS: ALT (SGPT) 49 U/L (8-55); AST (SGOT) 34 U/L (5-34); Albumin 2.9 g/dL (3.4-4.8); Alkaline Phosphatase 152 U/L (40-110); Anion Gap 12 mmol/L (10-20); BUN (Urea Nitrogen) 11 mg/dL (8.4-25.7); Bilirubin, Total 1.1 mg/dL (0.2-1.2); Calc. Creatinine Clearance 104 mL/min (70-130); Calcium 8.2 mg/dL (7.8-10.44); Carbon Dioxide 23 mmol/L (23-31); Cardiac Risk 3.3 (Less than 4.5); Chloride 108 mmol/L (98-107); Cholesterol 88 mg/dl (< 200 Desired); Estimated GFR-MDRD Greater than 90; Globulin 3.3 g/dL (2.4-3.5); Glucose 98 mg/dL (80-115); HDL Cholesterol 27 mg/dL (>60 Neg Risk); LDL Cholesterol, Calculated 51 mg/dL; Potassium 3.6 mmol/L (3.5-5.1); Protein, Total 6.2 g/dL (5.8-8.1); Sodium 139 mmol/L (136-145); Triglycerides 50 mg/dL (Less than 150)
[2019-08-25 06:00] LABS: Band 1 % (5-11); Eosinophils 1 % (0-10); Hemoglobin 12.1 g/dL (14.0-18.0); Lymphocytes 12 % (21-51); MDiff Complete? YES; Mean Corpuscular HGB CONC 32.3 g/dL (32.0-36.0); Mean Corpuscular Hemoglobin 30.2 pg (27.0-31.0); Mean Corpuscular Volume 93.5 fL (78.0-98.0); Mean Platelet Volume 6.4 fL (7.4-10.4); Monocytes 16 % (0-10); Neutrophil 70 % (42-75); Platelet Count 338 thou/uL (130-400); RBC Distribution Width 11.8 % (11.5-14.5); Red Blood Cell (RBC) Count 3.99 mill/uL (4.70-6.10); White Blood Cell (WBC) Count 9.2 thou/uL (4.8-10.8)
[2019-08-25] MEDS ORDERED: Mometasone 100 MCG/Formoterol 5 MCG 120 PUFF INHALER INH SCH (06:30)
--- NOTE | 2019-08-25 08:21 | ULT ---
BILATERAL CAROTID DUPLEX ULTRASOUND: HISTORY: Stroke TECHNIQUE: Grayscale, color-flow and spectral Doppler ultrasound imaging of the extracranial carotid artery syst ems and vertebral arteries was performed bilaterally. FINDINGS: No large amount of echogenic plaque is seen involving the common carotid or internal carotid arteries . The peak systolic velocity in the right ICA measures 99.2 cm/s. The peak systolic velocity in the ri ght CCA measures 101.4 cm/s. The peak systolic velocity in the left ICA measures 73.1 cm/s. The peak systolic velocity in the l eft CCA measures 95.4 cm/s. The right IC/CC ration is1.0. The left IC/CC ratio is 0.8. Vertebral flow: antegrade, bilaterally. . IMPRESSION: No hemodynamically significant stenosis of of either cervical carotid artery
[2019-08-25] MEDS: Famotidine 20 MG TAB PO SCH (08:56)
[2019-08-25] MEDS: Amlodipine 5 MG TAB PO SCH (08:57)
[2019-08-25] MEDS ORDERED: Tamsulosin HCl 0.4 MG CAP PO SCH ×2 (09:00→21:00)
[2019-08-25] MEDS ORDERED: Loratadine 10 MG TAB PO SCH (09:00)
[2019-08-25] MEDS ORDERED: Aspirin 81 mg Enteric Coated Tablet PO SCH (09:00)
[2019-08-25] MEDS: Acetaminophen 500 MG TAB PO PRN (09:07)
--- NOTE | 2019-08-25 11:09 | RAD ---
Exam: 4 views orbits for MRI clearance HISTORY: Metallic screw in left eye, 20 years ago FINDINGS: Visualized calvarium has a appropriate appearance. Adequate aeration visualized paranasal sinuses and mastoid air cells Visualized cervical spine does demonstrate degenerative change. No maxillofacial fractures No radiopaque foreign body projecting over the left or right orbit IMPRESSION: No radiopaque foreign body projecting over either orbit
--- NOTE | 2019-08-25 11:39 | MRI ---
Exam: Brain MRI without contrast HISTORY: Transient ischemic attack. 3 episodes of left eye vision loss COMPARISON: None FINDINGS: Calvarial marrow signal intensity: Appropriate T1 signal Gradient echo sequence: No hemorrhage Brain parenchyma: No mass, mass effect or midline shift. Brain volume, age-appropriate. Cortical mcallister-white matter differentiation: Preserved Restricted diffusion: Central arterial flow voids are maintained. Absent restricted diffusion White matter signal intensities:T2 and FLAIR white matter hyperintensities due to chronic small vesse l ischemic change. Remote cavitary lacunar infarct in the right hansen radiata with associated gliosis. Small remote cavitary lacunar infarcts in the left thalamus Sinuses: Paranasal sinus mucosal disease IMPRESSION: 1. Absent restricted diffusion. No acute infarct 2. Age-appropriate atrophy. 3. Chronic small vessel ischemic changes white matter with remote lacunar infarcts
[2019-08-25 11:42] VITALS: BP 141/80; TEMP 97.9
--- NOTE | 2019-08-25 16:14 | CON ---
DATE OF CONSULTATION: 08/25/2019 CONSULTING SERVICE: Neurology. REASON FOR CONSULTATION: Headache and visual changes, rule out stroke. HISTORY OF PRESENT ILLNESS: Mr. Sun is a 69-year-old male, who presented to the [facility] Emergency Room with a headache associated with transient loss of vision in the left eye. Per patient, he noticed intermittent visual loss in the left eye over the last 2 to 3 weeks, lasting for few minutes to an hour, which spontaneously resolved on its own. He denies any history of trauma, focal weakness, or dizziness associated with these episodes. He does have history of fever and has been evaluated for COVID and has been negative twice. He also is having intermittent headaches and taking Levaquin for pansinusitis. In the emergency room, he underwent CT imaging, which showed evidence of pansinusitis, but no acute intracranial process. He was given aspirin, Reglan, and Benadryl, which resolved the headache. The patient denies focal weakness, focal paresthesias, nausea, vomiting, dizziness, loss of consciousness associated with the episode. REVIEW OF SYSTEMS: All 14 systems were reviewed and were negative except pertinent positives mentioned in the HPI. PAST MEDICAL HISTORY: Reactive airway disease, hypertension, depression, benign prostatic hyperplasia, acute sinusitis. PAST SURGICAL HISTORY: Status post hernia repair x2, status post rhinoplasty with sinus repair. CURRENT MEDICATIONS: 1. Amlodipine 2.5 mg twice daily. 2. Guaifenesin. 3. Flonase. 4. Breo Ellipta. 5. Levaquin. 6. Flomax. ALLERGIES: ALLERGIC TO CODEINE AND AMOXICILLIN. FAMILY HISTORY: No family history of inheritable diseases. SOCIAL HISTORY: . Lives in [facility]. He uses marijuana occasionally. Denies alcohol or illegal drug use. PHYSICAL EXAMINATION: VITAL SIGNS: Blood pressure 170/80, pulse 88, respiratory rate 18. CVS: Regular rate and rhythm. CHEST: Clear. ABDOMEN: Soft. NEUROLOGICAL: Mental status; the patient is alert and oriented to person, place , and time. Speech is clear. Cranial nerves 2 through 12 intact. Motor; muscle, tone, and bulk are normal. Strength 5/5 bilaterally. Sensory intact. Reflexes 2+ bilaterally. Cerebellar; [id number] testing intact. Gait within normal limits. DATA REVIEWED: I reviewed the labs, which were essentially unremarkable. CT scan of the brain reviewed, which did not reveal any acute intracranial pathology. MRI is also unremarkable. An echocardiogram did not show any significant findings. Carotid Doppler did not show any hemodynamically significant stenosis. ASSESSMENT AND PLAN: Mr. Sun is consulted by Neurology for transient visual changes to rule out transient ischemic attack. He does have risk factors for stroke. MRI of the brain reviewed, which was negative for acute intracranial pathology. Carotid Doppler did not reveal any significant stenosis. 2D echo was also unremarkable. Agree with aspirin and statin for secondary stroke prevention. Neuro checks every 4 hours. Permissive control of blood pressure. We will continue home medications. Continue medical management per primary team. PT/OT/speech. We will continue to follow. Thank you for the consult. Job ID: [id number] [facility]
--- NOTE | 2019-08-26 01:18 | DIS ---
DATE OF ADMISSION: 08/24/2019 DATE OF DISCHARGE: 08/25/2019 DISCHARGE DIAGNOSES: 1. Pansinusitis. 2. Visual disturbance, unclear etiology. 3. Hypertension, stable. 4. Marijuana use. CONSULTATIONS: Dr. Verdugo with Neurology Service. PERTINENT LABORATORY AND X-RAY FINDINGS: AST ranged between 34 to 46, ALT ranged between 49 to 62, alkaline phosphatase ranged between 152 to 180, total cholesterol 88, triglycerides 50, HDL 27, LDL 51. CBC showed a hemoglobin ranging between 12.[address] of the brain without contrast dated 08/24/2019, showed paranasal sinus mucosal disease. MRI of the brain dated 08/25/2019, showed no acute infarct. Age-appropriate atrophy. Chronic small-vessel ischemic changes with remote lacunar infarcts. Carotid Doppler study dated 08/25/2019, showed no hemodynamically significant stenosis. 2D transthoracic echocardiogram dated 08/25/2019, showed ejection fraction 55% to 60%. Mild mitral regurgitation. Normal aortic valve without stenosis or regurgitation. HOSPITAL COURSE: The patient was observed on the stroke unit after initially presenting with severe headache with associated visual changes. The patient was placed on stroke unit after concern for potential transient ischemic attack. The patient underwent general stroke protocol including CT and MRI imaging of the brain showing no evidence of acute infarct. The patient was evaluated by the Neurology Service, however, no specific recommendations for intervention at this time. The patient to continue taking aspirin 81 mg daily and monitor symptom recurrence. The patient may need additional evaluation including ophthalmology exam after completion of treatment for acute pansinusitis. Overall, the patient did remain clinically stable during the hospital course and tolerated regular oral intake. I have examined the patient at the time of discharge and discussed followup instructions. The patient verbalized understanding and agreement, ready for discharge on 08/25/2019. DISCHARGE MEDICATIONS: 1. Norvasc 2.5 mg p.o. b.i.d. 2. Flonase 2 sprays in each naris daily. 3. Breo Ellipta one puff inhaled daily. 4. Levocetirizine 5 mg p.o. daily. 5. Flomax 0.4 mg p.o. daily. 6. Enteric-coated aspirin 81 mg p.o. daily. 7. Levaquin 500 mg p.o. daily x10 days. FOLLOWUP: The patient may follow up with his primary care provider with Dr. Jacinda Dhaliwal. The patient may also follow up with Ophthalmology Service after completion of antibiotic therapy. CONDITION ON DISCHARGE: Stable. ACTIVITY: Ad-francy. DIET: Heart healthy. CODE STATUS: Full. DISPOSITION: Home on 08/25/2019. Job ID: [id number]
== END 2019-08-25 16:00 | disposition home or self-care (01) ==
LOC: ERS 12:21 → 2SE 15:19
PROVIDERS: ADMIT Family Medicine; ATTEND Family Medicine
DX: G45.9 Transient cerebral ischemic attack, unspecified (principal); J01.40 Acute pansinusitis, unspecified; I10 Essential (primary) hypertension; F12.90 Cannabis use, unspecified, uncomplicated; Z79.899 Other long term (current) drug therapy; Z88.0 Allergy status to penicillin; Z88.5 Allergy status to narcotic agent
CPT/HCPCS: 36415; 36416; 70250; 70450; 70551; 80053; 80061; 84484; 85007; 85025; 85027; 85652; 93005; 93306; 93880; 96365; 96366; 96375; G0378; J1200; J2765

== ENCOUNTER 2022-11-30 09:30 | Outpatient (CLI) | payer MEDICARE ==
[2022-11-30 11:01] LABS: Hematocrit 44.8 % (38.8-50.0); Hemoglobin 14.8 g/dL (13.5-17.5)
[2022-11-30 11:23] LABS: Anion Gap 14 mmol/L (10-20); BUN (Urea Nitrogen) 25 mg/dL (8.4-25.7); Calc. Creatinine Clearance 0 mL/min (70-130); Calcium 9.4 mg/dL (7.8-10.44); Carbon Dioxide 23 mmol/L (23-31); Chloride 107 mmol/L (98-107); Estimated GFR 68; Glucose 98 mg/dL (83-110); Potassium 4.3 mmol/L (3.5-5.1); Sodium 140 mmol/L (136-145)
== END 2022-11-30 09:31 | disposition home or self-care (01) ==
LOC: LABBT 09:30
PROVIDERS: ATTEND Specialist
DX: Z01.818 Encounter for other preprocedural examination (principal); M31.6 Other giant cell arteritis
CPT/HCPCS: 80048; 85014; 85018; 93005; 93010

== ENCOUNTER 2022-12-01 07:25 | Day surgery (SDC) | payer MEDICARE ==
[2022-11-30 10:44] VITALS: BMI 27.4
[2022-12-01] MEDS ORDERED: EPINEPHrine 1 MG/ML AMP ONE (10:00)
[2022-12-01] MEDS ORDERED: Lidocaine 1% (PF) 30 ML VIAL ONE (10:00)
[2022-12-01] MEDS ORDERED: fentaNYL PF 100 MCG/2 ML SYRINGE ONE (10:05)
[2022-12-01] MEDS ORDERED: SUGAMMADEX SODIUM 200 MG/2 ML VIAL ONE (10:06)
[2022-12-01] MEDS ORDERED: PROPOFOL 200 MG/20 ML VIAL ONE (10:30)
[2022-12-01] MEDS ORDERED: Lidocaine 1% PF 5 ML VIAL ONE ×2 (10:30)
[2022-12-01] MEDS ORDERED: ePHEDrine Sulfate 50 MG/10 ML VIAL ONE (10:30)
[2022-12-01] MEDS ORDERED: Ondansetron PF 4 MG/2 ML Vial ONE (10:30)
[2022-12-01] MEDS ORDERED: PHENYLEPHRINE-NS 100 MCG/ML 10 ML SYRINGE ONE (10:30)
== END 2022-12-01 13:30 | disposition home or self-care (01) ==
LOC: SDC 07:25
PROVIDERS: ATTEND Specialist
PROC: 03BT0ZX Excision of Left Temporal Artery, Open Approach, Diagnostic (ICD-10-PCS; principal; 2022-12-01)
DX: M31.6 Other giant cell arteritis (principal); G50.1 Atypical facial pain; J32.9 Chronic sinusitis, unspecified; I10 Essential (primary) hypertension; K21.9 Gastro-esophageal reflux disease without esophagitis; J44.9 Chronic obstructive pulmonary disease, unspecified; Z88.2 Allergy status to sulfonamides; Z88.5 Allergy status to narcotic agent; Z79.899 Other long term (current) drug therapy
CPT/HCPCS: 88305; J0171; J2001; J2405; J2704

== ENCOUNTER 2022-12-27 11:23 | Outpatient (CLI) | payer MEDICARE | END 2022-12-27 11:24 | disposition home or self-care (01) | LOC: BICRAD 11:23 | PROVIDERS: ATTEND Nurse Practitioner Family | DX: M54.2 Cervicalgia (principal); M47.812 Spondylosis without myelopathy or radiculopathy, cervical region | CPT/HCPCS: 72050 ==

== ENCOUNTER 2023-01-25 09:21 | Outpatient (CLI) | payer MEDICARE | END 2023-01-25 09:22 | disposition home or self-care (01) | LOC: RAD 09:21 | PROVIDERS: ATTEND Internal Medicine Critical Care Medicine | DX: R06.00 Dyspnea, unspecified (principal); J98.4 Other disorders of lung; K44.9 Diaphragmatic hernia without obstruction or gangrene | CPT/HCPCS: 71046 ==

== ENCOUNTER 2023-06-08 09:20 | Outpatient (CLI) | payer MEDICARE | END 2023-06-08 09:21 | disposition home or self-care (01) | LOC: SCSMRI 09:20 | PROVIDERS: ATTEND Family Medicine | DX: R45.86 Emotional lability (principal) | CPT/HCPCS: 70553 ==

== ENCOUNTER 2023-06-14 12:32 | Outpatient (CLI) | payer MEDICARE | END 2023-06-14 12:33 | disposition home or self-care (01) | LOC: BICRAD 12:32 | PROVIDERS: ATTEND Family Medicine | DX: M54.50 Low back pain, unspecified (principal); G95.29 Other cord compression | CPT/HCPCS: 72100 ==

== ENCOUNTER 2023-06-26 08:52 | Outpatient (CLI) | payer MEDICARE ==
[2023-06-26 10:40] LABS: Hematocrit 40.5 % (38.8-50.0); Hemoglobin 12.8 g/dL (13.5-17.5); Mean Corpuscular HGB CONC 31.6 g/dL (32.0-36.0); Mean Corpuscular Hemoglobin 29.5 pg (27.0-33.0); Mean Corpuscular Volume 93.3 fl (81.2-95.1); Mean Platelet Volume 9.9 fl (7.4-10.4); Platelet Count 165 10x3/uL (150-450); RBC Distribution Width 14.6 % (11.5-14.5); Red Blood Cell (RBC) Count 4.34 10x6/uL (4.32-5.72); White Blood Cell (WBC) Count 8.1 10x3/uL (3.5-10.5)
[2023-06-26 11:02] LABS: Anion Gap 9 mmol/L (10-20); BUN (Urea Nitrogen) 23 mg/dL (8.4-25.7); Calc. Creatinine Clearance 0 mL/min (70-130); Calcium 9.3 mg/dL (7.8-10.44); Carbon Dioxide 26 mmol/L (23-31); Chloride 108 mmol/L (98-107); Estimated GFR 63; Glucose 91 mg/dL (83-110); Potassium 4.2 mmol/L (3.5-5.1); Sodium 139 mmol/L (136-145)
== END 2023-06-26 08:53 | disposition home or self-care (01) ==
LOC: LABBT 08:52
PROVIDERS: ATTEND Surgery
DX: Z01.812 Encounter for preprocedural laboratory examination (principal); K21.00 Gastro-esophageal reflux disease with esophagitis, without bleeding; R53.83 Other fatigue
CPT/HCPCS: 80048; 85027

== ENCOUNTER 2024-01-31 09:24 | Outpatient (CLI) | payer MEDICARE | END 2024-01-31 09:25 | disposition home or self-care (01) | LOC: RAD 09:24 | PROVIDERS: ATTEND Internal Medicine Critical Care Medicine | DX: R06.00 Dyspnea, unspecified (principal); I51.7 Cardiomegaly; J44.9 Chronic obstructive pulmonary disease, unspecified | CPT/HCPCS: 71046 ==

== ENCOUNTER 2024-03-07 09:27 | Inpatient (IN) | payer MEDICARE ==
[2024-03-07] MEDS ORDERED: Pantoprazole 40 MG VIAL ONE ×2 (10:03→10:05)
[2024-03-07 10:15] LABS: %Basophils 1.4 % (0.0-1.0); %Eosinophils 2.3 % (0.0-10.0); %Lymphocytes 15.4 % (21.0-51.0); %Monocytes 11.8 % (0.0-10.0); %Neutrophils 68.2 % (42.0-75.0); Hematocrit 43.5 % (42.0-52.0); Hemoglobin 13.2 g/dL (14.0-18.0); Mean Corpuscular HGB CONC 30.3 g/dL (32.0-36.0); Mean Corpuscular Hemoglobin 27.4 pg (27.0-31.0); Mean Corpuscular Volume 90.2 fL (78.0-98.0); RBC Distribution Width 22.3 % (11.5-14.5); Red Blood Cell (RBC) Count 4.82 mill/uL (4.70-6.10)
[2024-03-07 10:26] LABS: ALT (SGPT) 30 U/L (8-55); AST (SGOT) 30 U/L (5-34); Albumin 4.2 g/dL (3.4-4.8); Alkaline Phosphatase 45 U/L (40-110); Anion Gap 13 mmol/L (10-20); BUN (Urea Nitrogen) 25 mg/dL (8.4-25.7); Bilirubin, Total 6.9 mg/dL (0.2-1.2); Calc. Creatinine Clearance 0 mL/min (70-130); Calcium 8.9 mg/dL (7.8-10.44); Carbon Dioxide 21 mmol/L (23-31); Chloride 109 mmol/L (98-107); Estimated GFR 49; Glucose 100 mg/dL (83-110); Potassium 3.8 mmol/L (3.5-5.1); Protein, Total 6.2 g/dL (5.8-8.1); Sodium 139 mmol/L (136-145)
[2024-03-07 10:36] LABS: Troponin I 0.016 ng/mL (< 0.028)
[2024-03-07 10:58] LABS: Anisocytosis MODERATE=16-30 cells HPF (0-5); Burr Cells SLIGHT = 2-5 cells HPF (0-1); Platelet Adequacy Comment Platelets Decreased; Polychromasia SLIGHT = 2-3 cells HPF (0-2)
[2024-03-07 11:01] LABS: Mean Platelet Volume 11.1 fL (7.4-10.4); Platelet Count 92 10x3/uL (130-400)
[2024-03-07 11:29] LABS: PTT 33.2 sec (22.9-36.1); Prothrombin Time 22.3 sec (12.0-14.7)
[2024-03-07] MEDS ORDERED: Ipratropium Bromide 2.5 ml Neb ONE (13:15)
[2024-03-07] MEDS ORDERED: Albuterol 2.5 MG (3 mL) NEB ONE (13:15)
[2024-03-07] MEDS ORDERED: ALPRAZolam 0.5 MG TAB PO PRN (13:26)
[2024-03-07] MEDS ORDERED: tiZANidine HCl 4 MG TAB PO PRN (13:26)
[2024-03-07] MEDS ORDERED: Acetaminophen 325 MG TAB PO PRN (13:27)
[2024-03-07 14:06] LABS: Troponin I 0.017 ng/mL (< 0.028)
[2024-03-07] MEDS ORDERED: Metoprolol Tartrate 5 MG (5 mL) VIAL IVP PRN (14:13)
[2024-03-07 16:00] LABS: Troponin I Less than 0.010 ng/mL (< 0.028)
[2024-03-07] MEDS: Pantoprazole 40 MG VIAL IVP SCH (16:22)
[2024-03-07 17:00] VITALS: BMI 27.7
[2024-03-07] MEDS: NIFEdipine XL 30 MG ER.TAB PO SCH (20:30)
[2024-03-07] MEDS ORDERED: Apixaban 5 MG TAB PO SCH (21:00)
[2024-03-07] MEDS ORDERED: Non-Formulary Item 1 EACH (Fluticasone/Vilanterol [Breo Ellipta] 100 MCG/25 MCG Blst.W.De INH SCH (21:00)
[2024-03-08 05:13] LABS: #Basophils 0.11 10x3/uL (0.0-0.2); %Basophils 1.8 % (0.0-1.0); %Eosinophils 3.2 % (0.0-10.0); %Lymphocytes 24.5 % (21.0-51.0); %Monocytes 11.9 % (0.0-10.0); %Neutrophils 57.8 % (42.0-75.0); Hematocrit 46.5 % (42.0-52.0); Hemoglobin 13.7 g/dL (14.0-18.0); Mean Corpuscular HGB CONC 29.5 g/dL (32.0-36.0); Mean Corpuscular Hemoglobin 26.9 pg (27.0-31.0); Mean Corpuscular Volume 91.2 fL (78.0-98.0); Mean Platelet Volume 10.9 fL (7.4-10.4); Platelet Count 95 10x3/uL (130-400); RBC Distribution Width 22.6 % (11.5-14.5)
[2024-03-08 05:21] LABS: Immunoglob - G (Total IgG) 800 mg/dL (540-1822); Immunoglob - M (Total IgM) 136 mg/dL (22-240)
[2024-03-08 05:24] LABS: ALT (SGPT) 26 U/L (8-55); AST (SGOT) 28 U/L (5-34); Albumin 4.1 g/dL (3.4-4.8); Alkaline Phosphatase 43 U/L (40-110); Bilirubin, Direct 0.5 mg/dL (0.1-0.3); Bilirubin, Total 7.5 mg/dL (0.2-1.2); Protein, Total 6.3 g/dL (5.8-8.1)
[2024-03-08 05:29] LABS: INR-International Normal Ratio 1.7; Prothrombin Time 20.3 sec (12.0-14.7)
[2024-03-08 05:30] LABS: Anion Gap 15 mmol/L (10-20); BUN (Urea Nitrogen) 24 mg/dL (8.4-25.7); Bilirubin, Total 7.6 mg/dL (0.2-1.2); Calc. Creatinine Clearance 49 mL/min (70-130); Calcium 8.6 mg/dL (7.8-10.44); Carbon Dioxide 20 mmol/L (23-31); Chloride 109 mmol/L (98-107); Estimated GFR 42; Glucose 97 mg/dL (83-110); Iron 88 ug/dL (65-175); Iron Binding Capacity, Total 356 mcg/dL (261-462); Potassium 4.2 mmol/L (3.5-5.1); Sodium 140 mmol/L (136-145)
[2024-03-08 05:47] LABS: HBsAg Index 0.38 S/CO (0-0.99); Hep A IgM AB NONREACTIVE (NonReactive); Hep A IgM S/CO 0.16 S/CO (0-0.79); Hep B Core IgM Index 0.08 S/CO (0-0.79); Hep B Surf Ag NONREACTIVE S/CO (NonReactive); Hep C IgG Ab NONREACTIVE S/CO (NonReactive); Hepatitis B Core IgM Abs NONREACTIVE S/CO (NonReactive)
[2024-03-08] MEDS: Mometasone 100 MCG/Formoterol 5 MCG 120 PUFF INHALER INH SCH (07:36)
[2024-03-08] MEDS: predniSONE 5 MG TAB PO SCH (10:11)
[2024-03-08] MEDS: Cholecalciferol 1,000 UNITS (25 MCG) TAB PO SCH (10:11)
[2024-03-08] MEDS: Folic Acid 1 MG TAB PO SCH (10:11)
[2024-03-08] MEDS: PARoxetine 20 MG TAB PO SCH (10:11)
[2024-03-08] MEDS: Tamsulosin HCl 0.4 MG CAP PO SCH (10:12)
[2024-03-08] MEDS: Pantoprazole 40 MG VIAL IVP SCH (10:18)
[2024-03-08] MEDS ORDERED: Ipratropium/Albuterol 3 ML NEB ONE (12:52)
[2024-03-08] MEDS ORDERED: PHENYLEPHRINE-NS 100 MCG/ML 10 ML SYRINGE ONE (12:54)
[2024-03-08] MEDS ORDERED: Lidocaine 2% PF 5 ML VIAL ONE (12:54)
[2024-03-08] MEDS ORDERED: PROPOFOL 60 ML ONE (12:54)
[2024-03-08] MEDS ORDERED: SUCCINYLCHOLINE/SOD CL,ISO/PF 200 MG/10 ML SYRINGE FS ONE (13:34)
[2024-03-08] MEDS ORDERED: Ondansetron PF 4 MG/2 ML Vial ONE (13:41)
[2024-03-08] MEDS ORDERED: fentaNYL 50 mcg/mL 1 mL Vial ONE ×2 (13:59→14:19)
[2024-03-08] MEDS: Ipratropium/Albuterol 3 ML NEB NEB PRN (15:33)
[2024-03-08] MEDS: Amiodarone 200 MG TAB PO SCH (20:54)
[2024-03-08] MEDS: Apixaban 5 MG TAB PO SCH (20:54)
[2024-03-08] MEDS: hydrALAZINE 25 MG TAB PO SCH (20:54)
[2024-03-09] MEDS ORDERED: Ipratropium Bromide 2.5 ml Neb NEB PRN (10:13)
[2024-03-09] MEDS: Furosemide 40 MG (4 mL) VIAL SLOW IVP SCH (15:08)
[2024-03-09] MEDS: FLU (Fluad Triv) TS24-25 (65UP)/MF59C/PF 45 MCG/0.5 ML Syringe IM ONE (20:47)
[2024-03-10 04:58] LABS: ALT (SGPT) 24 U/L (8-55); AST (SGOT) 27 U/L (5-34); Albumin 3.4 g/dL (3.4-4.8); Alkaline Phosphatase 37 U/L (40-110); Anion Gap 13 mmol/L (10-20); BUN (Urea Nitrogen) 19 mg/dL (8.4-25.7); Bilirubin, Total 6.8 mg/dL (0.2-1.2); Calc. Creatinine Clearance 56 mL/min (70-130); Carbon Dioxide 21 mmol/L (23-31); Chloride 109 mmol/L (98-107); Estimated GFR 50; Globulin 1.8 g/dL (2.4-3.5); Glucose 97 mg/dL (83-110); Potassium 3.2 mmol/L (3.5-5.1); Protein, Total 5.2 g/dL (5.8-8.1); Sodium 140 mmol/L (136-145)
[2024-03-10 05:07] LABS: #Basophils 0.04 10x3/uL (0.0-0.2); %Basophils 0.8 % (0.0-1.0); %Eosinophils 1.9 % (0.0-10.0); %Lymphocytes 14.4 % (21.0-51.0); %Monocytes 11.5 % (0.0-10.0); %Neutrophils 70.6 % (42.0-75.0); Hematocrit 37.7 % (42.0-52.0); Hemoglobin 11.7 g/dL (14.0-18.0); Mean Corpuscular Hemoglobin 27.5 pg (27.0-31.0); Mean Corpuscular Volume 88.5 fL (78.0-98.0); Mean Platelet Volume 10.7 fL (7.4-10.4); Platelet Count 83 10x3/uL (130-400); RBC Distribution Width 22.7 % (11.5-14.5); Red Blood Cell (RBC) Count 4.26 mill/uL (4.70-6.10)
[2024-03-10] MEDS: Pantoprazole DR 40 MG TAB PO SCH (08:12)
[2024-03-10] MEDS: Potassium Bicarbonate/Cit Ac 20 MEQ TAB PO SCH ×2 (11:49→12:09)
[2024-03-10] MEDS: Furosemide 40 MG (4 mL) VIAL SLOW IVP SCH ×2 (11:51→14:51)
[2024-03-10] MEDS: Potassium Phosphate 30 MMOL in Sodium Chloride 0.9% 250 ML 250 ML IVPB SCH (14:51)
[2024-03-10] MEDS ORDERED: Pancrelipase DR 12,000 1 CAP PO SCH (17:00)
[2024-03-10] MEDS ORDERED: Potassium Bicarbonate/Cit Ac 20 MEQ TAB PO SCH ×2 (17:00→21:00)
[2024-03-10 22:02] LABS: Magnesium 1.9 mg/dL (1.6-2.6); Potassium 3.2 mmol/L (3.5-5.1)
[2024-03-11] MEDS: Magnesium 2 GM/50 ML(in water) 2 GM in Premix 1 BAG IVPB SCH (00:36)
[2024-03-11] MEDS: Potassium Bicarbonate/Cit Ac 20 MEQ TAB PO SCH ×3 (00:37→17:36)
[2024-03-11 05:17] LABS: #Basophils 0.06 10x3/uL (0.0-0.2); %Basophils 1.1 % (0.0-1.0); %Eosinophils 2.3 % (0.0-10.0); %Monocytes 11.6 % (0.0-10.0); %Neutrophils 65.1 % (42.0-75.0); Hematocrit 39.2 % (42.0-52.0); Hemoglobin 12.5 g/dL (14.0-18.0); Mean Corpuscular HGB CONC 31.9 g/dL (32.0-36.0); Mean Corpuscular Hemoglobin 27.4 pg (27.0-31.0); Mean Platelet Volume 11.5 fL (7.4-10.4); Platelet Count 90 10x3/uL (130-400); Red Blood Cell (RBC) Count 4.56 mill/uL (4.70-6.10)
[2024-03-11 08:57] LABS: Anion Gap 15 mmol/L (10-20); BUN (Urea Nitrogen) 19 mg/dL (8.4-25.7); Calc. Creatinine Clearance 50 mL/min (70-130); Calcium 8.3 mg/dL (7.8-10.44); Carbon Dioxide 26 mmol/L (23-31); Chloride 101 mmol/L (98-107); Estimated GFR 44; Glucose 105 mg/dL (83-110); Potassium 3.2 mmol/L (3.5-5.1); Sodium 139 mmol/L (136-145)
[2024-03-11] MEDS: Loperamide HCl 2 MG CAP PO PRN (09:31)
[2024-03-11] MEDS: Dapagliflozin Propanediol 10 MG TAB PO SCH (09:31)
[2024-03-11 11:10] LABS: ALT (SGPT) 23 U/L (8-55); AST (SGOT) 28 U/L (5-34); Albumin 3.8 g/dL (3.4-4.8); Alkaline Phosphatase 39 U/L (40-110); Anion Gap 14 mmol/L (10-20); BUN (Urea Nitrogen) 19 mg/dL (8.4-25.7); Bilirubin, Total 7.9 mg/dL (0.2-1.2); Calc. Creatinine Clearance 54 mL/min (70-130); Calcium 8.3 mg/dL (7.8-10.44); Carbon Dioxide 25 mmol/L (23-31); Chloride 102 mmol/L (98-107); Estimated GFR 48; Glucose 96 mg/dL (83-110); Potassium 3.6 mmol/L (3.5-5.1); Protein, Total 5.8 g/dL (5.8-8.1); Sodium 137 mmol/L (136-145)
[2024-03-11 13:49] LABS: ANA Symphony (Qualitative) Negative (Negative); ANA Symphony (Quantitative) 0.3 Ratio (< 0.7 Negative); EliA Vaculitis New Method **** NEW METHOD ****; Mitochondrial Ab 0.9 U/mL (<4 Negative); dsDNA IgG Antibody 1.3 IU/mL (<10 Negative)
[2024-03-11] MEDS: Amiodarone 200 MG TAB PO SCH (15:59)
[2024-03-12 04:40] LABS: #Basophils 0.04 10x3/uL (0.0-0.2); %Basophils 0.7 % (0.0-1.0); %Eosinophils 2.1 % (0.0-10.0); %Lymphocytes 20.9 % (21.0-51.0); %Monocytes 11.6 % (0.0-10.0); %Neutrophils 64.1 % (42.0-75.0); Hematocrit 40.2 % (42.0-52.0); Hemoglobin 12.3 g/dL (14.0-18.0); Mean Corpuscular HGB CONC 30.6 g/dL (32.0-36.0); Mean Corpuscular Hemoglobin 27.2 pg (27.0-31.0); Mean Corpuscular Volume 88.9 fL (78.0-98.0); Mean Platelet Volume 10.8 fL (7.4-10.4); Platelet Count 80 10x3/uL (130-400); Red Blood Cell (RBC) Count 4.52 mill/uL (4.70-6.10)
[2024-03-12 04:47] LABS: Magnesium 2.3 mg/dL (1.6-2.6)
[2024-03-12 11:21] VITALS: TEMP 98.9
[2024-03-12 11:21] LABS: ALT (SGPT) 25 U/L (8-55); AST (SGOT) 30 U/L (5-34); Albumin 4.1 g/dL (3.4-4.8); Alkaline Phosphatase 44 U/L (40-110); Anion Gap 14 mmol/L (10-20); BUN (Urea Nitrogen) 24 mg/dL (8.4-25.7); Bilirubin, Total 7.9 mg/dL (0.2-1.2); Calc. Creatinine Clearance 44 mL/min (70-130); Calcium 8.5 mg/dL (7.8-10.44); Carbon Dioxide 30 mmol/L (23-31); Chloride 99 mmol/L (98-107); Estimated GFR 41; Globulin 2.1 g/dL (2.4-3.5); Glucose 88 mg/dL (83-110); Potassium 3.6 mmol/L (3.5-5.1); Protein, Total 6.2 g/dL (5.8-8.1); Sodium 139 mmol/L (136-145)
[2024-03-12 13:37] VITALS: BP 141/88
== END 2024-03-12 13:53 | disposition home or self-care (01) | DRG 291 ==
LOC: ERS 09:27 → ERHOLD 12:08 → OBS 14:59 → OBSVTOIN 03-09 10:04
PROVIDERS: ADMIT Internal Medicine; ATTEND Internal Medicine
PROC: 5A2204Z Restoration of Cardiac Rhythm, Single (ICD-10-PCS; principal; 2024-03-08)
PROC: B24BZZ4 Ultrasonography of Heart with Aorta, Transesophageal (ICD-10-PCS; 2024-03-08)
PROC: 3E02340 Introduction of Influenza Vaccine into Muscle, Percutaneous Approach (ICD-10-PCS; 2024-03-08)
DX: I13.0 Hypertensive heart and chronic kidney disease with heart failure and stage 1 through stage 4 chronic kidney disease, or unspecified chronic kidney disease (principal); I50.33 Acute on chronic diastolic (congestive) heart failure; K92.2 Gastrointestinal hemorrhage, unspecified; E87.20 Acidosis, unspecified; N17.9 Acute kidney failure, unspecified; J45.909 Unspecified asthma, uncomplicated; N40.0 Benign prostatic hyperplasia without lower urinary tract symptoms; E80.6 Other disorders of bilirubin metabolism; M31.6 Other giant cell arteritis; D69.6 Thrombocytopenia, unspecified; F41.9 Anxiety disorder, unspecified; K21.9 Gastro-esophageal reflux disease without esophagitis; I48.0 Paroxysmal atrial fibrillation; I08.1 Rheumatic disorders of both mitral and tricuspid valves; I42.9 Cardiomyopathy, unspecified; N18.9 Chronic kidney disease, unspecified; Z88.2 Allergy status to sulfonamides; Z88.5 Allergy status to narcotic agent; Z88.1 Allergy status to other antibiotic agents; Z87.891 Personal history of nicotine dependence; Z79.52 Long term (current) use of systemic steroids; Z79.01 Long term (current) use of anticoagulants; Z79.899 Other long term (current) drug therapy; Z23 Encounter for immunization
CPT/HCPCS: 0241U; 36415; 71045; 80048; 80053; 80074; 82105; 82247; 82274; 83516; 83540; 83550; 83735; 83880; 84484; 85025; 85610; 85730; 86015; 86038; 86225; 92960; 93005; 93312; 93798; 94640; 96374; J1940; J2405; J2470; J2704; J3010; J3475; J7050; J7512; J7611; J7620; J7644

== ENCOUNTER 2024-03-15 15:26 | Emergency (ER) | payer MEDICARE ==
[2024-03-15] MEDS ORDERED: Metoprolol Tartrate 5 MG (5 mL) VIAL ONE (15:53)
[2024-03-15 16:06] LABS: #Basophils 0.07 10x3/uL (0.0-0.2); %Basophils 1.1 % (0.0-1.0); %Lymphocytes 7.1 % (21.0-51.0); %Monocytes 10.9 % (0.0-10.0); %Neutrophils 77.3 % (42.0-75.0); Hematocrit 42.4 % (42.0-52.0); Hemoglobin 13.2 g/dL (14.0-18.0); Mean Corpuscular HGB CONC 31.1 g/dL (32.0-36.0); Mean Corpuscular Hemoglobin 27.9 pg (27.0-31.0); Mean Corpuscular Volume 89.6 fL (78.0-98.0); Mean Platelet Volume 10.5 fL (7.4-10.4); Platelet Count 97 10x3/uL (130-400); Red Blood Cell (RBC) Count 4.73 mill/uL (4.70-6.10)
[2024-03-15 16:19] LABS: ALT (SGPT) 26 U/L (8-55); AST (SGOT) 30 U/L (5-34); Albumin 3.9 g/dL (3.4-4.8); Alkaline Phosphatase 44 U/L (40-110); Anion Gap 12 mmol/L (10-20); BUN (Urea Nitrogen) 14 mg/dL (8.4-25.7); Calc. Creatinine Clearance 0 mL/min (70-130); Calcium 8.9 mg/dL (7.8-10.44); Carbon Dioxide 23 mmol/L (23-31); Chloride 108 mmol/L (98-107); Estimated GFR 48; Globulin 1.9 g/dL (2.4-3.5); Glucose 117 mg/dL (83-110); Potassium 3.9 mmol/L (3.5-5.1); Protein, Total 5.8 g/dL (5.8-8.1); Sodium 139 mmol/L (136-145)
[2024-03-15 16:23] LABS: Troponin I Less than 0.010 ng/mL (< 0.028)
[2024-03-15 18:35] LABS: Bacteria/HPF None Seen HPF (None Seen); Bilirubin Negative (Negative); Blood, Urine 3+ (Negative); CAUTI Indications for Culture < 2yrs of age; Clarity Turbid (Clear); Glucose, Urine (Dipstick) Greater than 1000 mg/dL (Negative); Ketone, Urine Negative (Negative); Leukocyte 250 Leu/uL (Negative); Nitrite Negative (Negative); Protein, Urine (Dipstick) 50 mg/dL (Neg-Trace); RBC/HPF Greater than 50 HPF (0-3); Specific Gravity, Urine 1.021 (1.002-1.036); Squamous Epithelial None Seen HPF (0-3); Urobilinogen 3 mg/dL (Less than 2); WBC/HPF Greater than 50 HPF (0-3); pH, Urine 6.5 (5.0-9.0)
[2024-03-15 18:37] LABS: Urine Culture Reflex Yes Yes
== END 2024-03-15 17:42 | disposition home or self-care (01) ==
LOC: ERS 15:26
DX: I48.91 Unspecified atrial fibrillation (principal); I10 Essential (primary) hypertension; J44.9 Chronic obstructive pulmonary disease, unspecified; Z79.01 Long term (current) use of anticoagulants; Z79.899 Other long term (current) drug therapy
CPT/HCPCS: 71045; 80053; 81001; 84484; 85025; 87086; 93005; 96374

== ENCOUNTER 2024-04-06 09:39 | Emergency (ER) | payer MEDICARE ==
[2024-04-06] MEDS ORDERED: Boostrix 0.5 ML (Tdap) VIAL (>/=7 yrs of age) ONE (10:28)
== END 2024-04-06 10:55 | disposition home or self-care (01) ==
LOC: ERS 09:39
DX: S61.512A Laceration without foreign body of left wrist, initial encounter (principal); S09.90XA Unspecified injury of head, initial encounter; H10.9 Unspecified conjunctivitis; I10 Essential (primary) hypertension; Z23 Encounter for immunization; Z79.899 Other long term (current) drug therapy; W01.10XA Fall on same level from slipping, tripping and stumbling with subsequent striking against unspecified object, initial encounter
CPT/HCPCS: 70450; 72125; 90471; 90715

== ENCOUNTER 2024-05-13 10:15 | Outpatient (CLI) | payer MEDICARE ==
[~2024-05-13 10:15] MED LIST changes: -Iopamidol-370 76% 500 ML 1 ML ONE; +Magnevist 469MG/ML 20 ML VIAL ONE
== END 2024-05-13 10:16 | disposition home or self-care (01) ==
LOC: BICMRI 10:15
PROVIDERS: ATTEND Family Medicine
DX: R41.3 Other amnesia (principal); I67.82 Cerebral ischemia; M26.643 Arthritis of bilateral temporomandibular joint; M26.69 Other specified disorders of temporomandibular joint
CPT/HCPCS: 70553

== ENCOUNTER 2024-05-14 14:59 | Outpatient (CLI) | payer MEDICARE | END 2024-05-14 15:00 | disposition home or self-care (01) | LOC: CT 14:59 | PROVIDERS: ATTEND Family Medicine | DX: R10.30 Lower abdominal pain, unspecified (principal); K57.32 Diverticulitis of large intestine without perforation or abscess without bleeding; N20.2 Calculus of kidney with calculus of ureter | CPT/HCPCS: 74176 ==

== ENCOUNTER 2024-11-22 08:29 | Outpatient (CLI) | payer MEDICARE | END 2024-11-22 08:30 | disposition home or self-care (01) | LOC: BICRAD 08:29 | PROVIDERS: ATTEND Family Medicine | DX: M25.521 Pain in right elbow (principal); M25.551 Pain in right hip; R07.81 Pleurodynia; S22.31XA Fracture of one rib, right side, initial encounter for closed fracture; S52.021D Displaced fracture of olecranon process without intraarticular extension of right ulna, subsequent encounter for closed fracture with routine healing; M79.89 Other specified soft tissue disorders ==

== ENCOUNTER 2025-01-13 12:41 | Outpatient (CLI) | payer MEDICARE ==
[2025-01-13 13:28] LABS: #Basophils 0.08 10x3/uL (0.0-0.2); #Eosinophils 0.24 10x3/uL (0.0-0.7); #Monocytes 0.93 10x3/uL (0.11-0.59); #Neutrophils 4.69 10x3/uL (1.40-6.50); %Basophils 1.1 % (0.0-1.0); %Eosinophils 3.4 % (0.0-10.0); %Lymphocytes 13.6 % (21.0-51.0); %Monocytes 13.3 % (0.0-10.0); %Neutrophils 67.3 % (42.0-75.0); Hematocrit 41.5 % (42.0-52.0); Hemoglobin 12.5 g/dL (14.0-18.0); Mean Corpuscular Hemoglobin 30.5 pg (27.0-31.0); Mean Corpuscular Volume 101.2 fL (78.0-98.0); Platelet Count 134 10x3/uL (130-400); Red Blood Cell (RBC) Count 4.10 mill/uL (4.70-6.10); White Blood Cell (WBC) Count 6.98 10x3/uL (4.8-10.8)
[2025-01-13 13:31] LABS: Glucose, Urine (Dipstick) Greater than 1000 mg/dL (Negative); Leukocyte 500 Leu/uL (Negative); Protein, Urine (Dipstick) Negative (Neg-Trace); RBC/HPF None Seen HPF (0-3); Specific Gravity, Urine 1.021 (1.002-1.036); WBC/HPF Greater than 50 HPF (0-3)
[2025-01-13 13:35] LABS: Bacteria/HPF 1+ HPF (None Seen)
[2025-01-13 13:37] LABS: Anion Gap 12 mmol/L (10-20); BUN (Urea Nitrogen) 19 mg/dL (8.4-25.7); Calc. Creatinine Clearance 0 mL/min (70-130); Calcium 8.7 mg/dL (7.8-10.44); Carbon Dioxide 27 mmol/L (23-31); Chloride 109 mmol/L (98-107); Glucose 91 mg/dL (83-110); Potassium 4.2 mmol/L (3.5-5.1); Sodium 144 mmol/L (136-145)
[2025-01-13 13:46] LABS: INR-International Normal Ratio 1.0; PTT 30.7 sec (22.9-36.1); Prothrombin Time 13.0 sec (12.0-14.7)
== END 2025-01-13 12:42 | disposition home or self-care (01) ==
LOC: LABBT 12:41
PROVIDERS: ATTEND Urology
DX: Z01.818 Encounter for other preprocedural examination (principal); N20.0 Calculus of kidney; R35.0 Frequency of micturition; I50.22 Chronic systolic (congestive) heart failure; N40.1 Benign prostatic hyperplasia with lower urinary tract symptoms; M31.6 Other giant cell arteritis; J44.9 Chronic obstructive pulmonary disease, unspecified; G47.33 Obstructive sleep apnea (adult) (pediatric); N52.01 Erectile dysfunction due to arterial insufficiency
CPT/HCPCS: 80048; 81001; 85025; 85610; 85730; 87077; 87086; 87186; 93005; 93010